=== PATIENT | female | born 1980 | race Caucasian/White ===

== ENCOUNTER → 2017-07-27 19:08 | Outpatient (CLI) | payer OTHER, SELFPAY ==
--- NOTE | 2017-07-27 11:42 | COLBX_PTH ---
PATIENT: RAHEL DACOSTA [facility] U#:[id number] AGE/SX: 44/F ROOM: RE07/27/[address]: Dr. Jesus Patricia MD : 1980 BED: DIS: SPEC #: [id number] RECD: 07/27/17 15:37 STATUS: SHAQUILLE ITA #: [id number] KRISTINA: 07/27/17 11:[address]: Jesus Patricia DEPT: SURGICAL PATHOLOGY RECD BY: Liam Fam ENTERED: 07/30/17 07:24 SP TYPE: COLON BX OTHR DR: ANTHONY Tissues: A - Ileum, NOS B - Left colon Procedures: Surgery Specimen Level IV HEADER OPERATION: Colonoscopy with biopsies PRE-OP DIAGNOSIS: Crohn?s TISSUE SUBMITTED: A. Terminal ileum biopsies, rule out ulcerative colitis, B. Left colon biopsies, rule out ulcerative colitis and dysplasia MICROSCOPIC DIAGNOSIS A. Terminal ileum, biopsy: Fragments of small intestinal mucosa, no pathologic diagnosis. B. Left colon, biopsy: Fragments of colonic mucosa, no pathologic diagnosis. ADAM:estephania 07/31/17 MICROSCOPIC DESCRIPTION Slides are reviewed. GROSS DESCRIPTION A - Received in fixative is one container labeled with the patient's name and designated terminal ileum biopsy. The specimen consists of one irregular fragment of light saldivar soft tissue that measures 0.2 x 0.2 x 0.1 cm. The specimen is totally submitted in one cassette. B - Received in fixative is one container labeled with the patient's name and designated left colon biopsy. The specimen consists of multiple irregular fragments of light saldivar soft tissue that in aggregate measure 1.5 x 0.3 x 0.1 cm. The specimen is totally submitted in one cassette. / ADAM:estephania 07/30/17 TC:4 CPT: 16871 x2
== END ==
PROVIDERS: Visit Provider Internal Medicine Gastroenterology
DX: K50.90 Crohn's disease, unspecified, without complications (principal)
CPT/HCPCS: 88305

== ENCOUNTER → 2017-09-05 09:34 | Outpatient (CLI) | payer OTHER, SELFPAY ==
[2017-09-06 16:09] LABS: Endomysial Antibody IgA Negative (Negative)
[2017-09-06 16:28] LABS: Immunoglobulin A 123 mg/dL (87-352); t-Transglutaminase IgA <2 U/mL (0-3)
== END ==
PROVIDERS: Family Provider Family Medicine; PCP Family Medicine; Visit Provider Internal Medicine Gastroenterology
DX: R10.9 Unspecified abdominal pain (principal)
CPT/HCPCS: 36415; 82784; 83516; 86140; 86255

== ENCOUNTER → 2025-03-03 | Outpatient (CLI) | payer OTHER, SELFPAY ==
[2025-03-03 17:56] LABS: Hematocrit 41.2 % (37-47); Hemoglobin 13.5 g/dL (12.0-15.0); Mean Corp Hgb Conc 32.8 g/dL (32-36); Mean Corpuscular Volume 92.6 fL (81-99); Mean Platelet Vol. 10.7 fl (6.2-12.0); Platelet Count 358 K/mm3 (150-450); RBC Distribution Width CV 12.5 % (11.6-14.6); RBC Distribution Width SD 42.6 fl (35.1-43.9); Red Blood Count 4.45 M/mm3 (4.2-5.4); White Blood Count 11.1 K/mm3 (4.4-11.0)
[2025-03-03 17:58] LABS: AST(SGOT) 21 U/L (<=31); Alanine Aminotransfer ALT/SGPT 18 U/L (<=34); Albumin, Serum 4.8 g/dL (3.5-5.0); Alkaline Phosphatase 52 U/L (35-104); Anion Gap 15 (7-18); BUN 18 mg/dL (4-19); BUN/Creat Ratio 21.7 RATIO (10-20); CRP 5.84 mg/L (0.0-3.0); Calcium,Total 10.0 mg/dL (7.6-11.0); Carbon Dioxide 24.5 mmol/L (20.0-29.0); Chloride 100 mmol/L (96-106); Globulin 2.7 g/dL (2.2-4.2); Glucose 90 mg/dL (70-99); Potassium 3.8 mmol/L (3.5-5.1)
== END | disposition home or self-care (01) ==
LOC: MTLAB 15:32
PROVIDERS: PCP Family Medicine; Referring Provider Internal Medicine Gastroenterology; Visit Provider Internal Medicine Gastroenterology
DX: K50.90 Crohn's disease, unspecified, without complications (principal)
CPT/HCPCS: 36415; 80053; 85027; 85652; 86140